=== PATIENT | female | born 1985 | race Caucasian/White ===

== ENCOUNTER 2020-05-03 14:46 | Outpatient (CLI) | payer OTHER, SELFPAY ==
--- NOTE | ~2020-05-03 | DEXA_ITS ---
Bone Density Report Name: Melva Gil Age: 34 Sex: Female Ethnicity: White Date of : 1985 Indication: asthma or emphysema; Referring Provider: Geoff, Meron Shipley Study: Bone densitometry was performed. Exam Date: May 03, 2020 Accession number: [id number] Bone Density: Region BMD T-score Z-score Classification AP Spine (L1, L2, L4) 1.146 1.0 1.1 Normal Femoral Neck (Left) 0.949 0.9 1.1 Normal Total Hip (Left) 1.213 2.2 2.3 Normal Total Hip Bilateral Avg 1.205 2.1 2.3 Normal Femoral Neck (Right) 0.845 0.0 0.2 Normal Total Hip (Right) 1.196 2.1 2.2 Normal World Health Organization criteria for BMD impression classify patients as: Normal (T-score at or above -1.0), Osteopenia (T-score between -1.0 and -2.5), or Osteoporosis (T-score at or below -2.5). 10-year Fracture Risk: FRAX not reported because: Premenopausal woman All T-scores for Spine Total, Hip Total, Femoral Neck at or above -1.0 Previous Exams: Region Exam Age BMD T-score BMD Change BMD Change Date g/cm2 vs Baseline vs Previous AP Spine(L1, L2, L4) 05/03/2020 34 1.146 1.0 0.059(5.4%)* -0.055(-4.6%)# 07/03/2017 32 1.201 1.5 0.114(10.5%)# 0.114(10.5%)06/23/2013 27 1.087 0.5 Total Hip(Left) 05/03/2020 34 1.213 2.2 0.008(0.7%) -0.026(-2.1%)# 07/03/2017 32 1.238 2.4 0.034(2.8%)# 0.034(2.8%)06/23/2013 27 1.205 2.2 Total Hip(Right) 05/03/2020 34 1.196 2.1 0.038(3.3%)* 0.010(0.9%)07/03/2017 32 1.186 2.0 0.028(2.4%)# 0.028(2.4%)06/23/2013 27 1.158 1.8 *Denotes significance at 95% confidence level, LSC for AP Spine = 0.022 g/cm2, LSC for Total Hip = 0.027 g/cm2 Clinical Information Provided by Patient: Has used the following medications: Vitamin D, Calcium Has the following medical conditions: Asthma or Emphysema, HIGH RISK MEDS Patient maximum height was 62 No regular weight bearing exercise Drinks caffeinated beverages Onset of menses at age 7 Premenopausal Number of children 0 Impression: The patient's bone mass is within expected range for age, gender and ethnicity. No significant bone loss was observed. Discussion: BONE DENSITY IS WITHIN EXPECTED LIMITS FOR AGE, SEX AND RACE. Bone density is within expected limits for age, sex and race at all sites measured. The patient should follow a healthful lifestyle (good nutrition with adequate calcium and vitamin D, and appropriate weight-francois
== END 2020-05-03 14:47 | disposition home or self-care (01) ==
LOC: ANHIMG 14:49
PROVIDERS: PCP Family Medicine; Visit Provider Physician Assistant Medical
DX: Z51.81 Encounter for therapeutic drug level monitoring (principal); Z79.51 Long term (current) use of inhaled steroids
CPT/HCPCS: 77080

== ENCOUNTER 2021-02-09 15:35 | Outpatient (CLI) | payer OTHER, SELFPAY ==
--- NOTE | ~2021-02-09 | XR_ITS ---
XR shoulder RT min 2V DATE: 02/09/2021 16:16 INDICATION: Right shoulder pain. No acute injury. TECHNIQUE: 5 views COMPARISON: None FINDINGS: Fracture or dislocation, periosteal reaction or bone destruction. Normal alignment at the a cromioclavicular and glenohumeral joints. No abnormal soft tissue calcification. IMPRESSION: Negative Reviewed, dictated and finalized at location A. IMPRESSION: Negative
== END 2021-02-09 15:36 | disposition home or self-care (01) ==
LOC: ANHIMG 15:36
PROVIDERS: PCP Family Medicine; Visit Provider Family Medicine
DX: M25.511 Pain in right shoulder (principal)
CPT/HCPCS: 73030

== ENCOUNTER → 2021-06-09 11:03 | Outpatient (CLI) | payer OTHER, SELFPAY ==
--- NOTE | ~2021-06-09 | MR_ITS ---
EXAMINATION: MR shoulder RT wo con DATE: 06/09/2021 11:48 INDICATION: Right shoulder pain. TECHNIQUE: Magnetic resonance imaging (MRI) of the right shoulder was performed without intravenous c ontrast. Sequences included axial PD-weighted FS FSE, coronal oblique PD-weighted FS FSE and T2-weigh kae FS FSE, and sagittal oblique T2-weighted FS FSE and T1-weighted FSE. COMPARISON: Right shoulder radiographs 02/09/2021 FINDINGS: Coracoacromial arch: The acromion undersurface is curved in morphology (type II). The acromioclavicular joint is normal. T here is mild subacromial/subdeltoid bursitis. Rotator cuff: There is moderate supraspinatus and infraspinatus tendinopathy. Teres minor tendon is normal. Subscap ularis tendon is normal. No tear. There is no fatty atrophy of the rotator cuff muscle bellies. Biceps tendon and glenoid labrum: Biceps tendon is in bicipital groove. Intra-articular biceps tendon is normal. There is degeneration of superior labrum without well-defined tear. Fluid: There is a small glenohumeral joint effusion. Bones/cartilage: Glenoid cartilage is normal. Humeral head cartilage is normal. IMPRESSION: 1. Moderate rotator cuff tendinopathy. No tear. 2. Mild subacromial/subdeltoid bursitis. 3. Small glenohumeral joint effusion. Reviewed, dictated and finalized at location A. N DRIVER SALESPERSON
== END ==
PROVIDERS: Visit Provider Nurse Practitioner Family
DX: M75.51 Bursitis of right shoulder (principal); M25.411 Effusion, right shoulder
CPT/HCPCS: 73221

== ENCOUNTER → 2021-10-16 11:51 | Outpatient (CLI) | payer OTHER, SELFPAY ==
--- NOTE | ~2021-10-16 | MR_ITS ---
EXAMINATION: MR shoulder RT w con DATE: 10/16/2021 13:52 INDICATION: Right shoulder pain TECHNIQUE: Magnetic resonance imaging (MRI) of the right shoulder was performed following intra-jennifer cular gadolinium contrast injection and without intravenous contrast. Details of the glenohumeral christiana nt injection have been dictated separately. Sequences included axial T2-weighted FS FSE, axial T1-we ighted FS FSE, coronal oblique T1-weighted FS FSE, coronal oblique T2-weighted FSE, sagittal T2-weigh kae FS FSE, sagittal T1-weighted FSE, and ABER (abduction external rotation) T1-weighted FS FSE. COMPARISON: 06/06/2021 FINDINGS: Coracoacromial arch: The acromion undersurface is curved in morphology (type II). The coracoacromial ligament is normal. A cromioclavicular joint is normal. Rotator cuff: Mild tendinopathy of the conjoined portion of the supraspinatus and infraspinatus tendons without dis crete tear. The subscapularis tendon and teres minor tendons are normal. No asymmetric rotator cuff m uscle atrophy. There is some intrasubstance contrast within the distal subscapularis muscle and tendo n likely representing a small amount of intramuscular injected contrast which is centered at the site of injection. Biceps tendon, glenoid labrum and glenohumeral cartilage: Long head of the biceps tendon is normal. Glenohumeral cartilage is normal. Small region of fraying a long the peripheral free edge of the 11:00 position of the posterior superior glenoid labrum best angie reciated on oblique sagittal series 8, image 17, oblique coronal series 5 & 6, image 10 and axial ser ies 3 & 4, images 10-11. Remainder of the labrum appears normal. Bones and other: Bone alignment is normal. Normal marrow signal with no edema, fracture or pathologic marrow replacing process. Small amount of noncontrast enhanced fluid in the subacromial/subdeltoid bursa consistent w ith mild bursitis. IMPRESSION: 1. Small region of fraying along the peripheral free edge of the posterior superior glenoid labrum. 2. Mild tendinopathy without discrete tear at the conjoined portion of the supraspinatus and infraspi natus tendons. 2. Mild subacromial/subdeltoid bursitis. Reviewed, dictated and finalized at location B. IMPRESSION: 1. Small region of fraying along the peripheral free edge of the posterior supe rior glenoid labrum. 2. Mild tendinopathy without discrete tear at the conjoined portion of the supr aspinatus and infraspinatus tendons. 2. Mild subacromial/subdeltoid bursitis.
--- NOTE | ~2021-10-16 | XR_ITS ---
EXAMINATION: XR fl inj shoulder RT - MR/CT DATE: 10/16/2021 13:30 INDICATION: Right shoulder pain TECHNIQUE: A time-out was performed to verify the patient's name, date of , and procedure to b e performed. The procedure including the risks, benefits, and alternatives was discussed with the pat ient. Risks discussed included bleeding and infection. The patient understood the risks and agreed to proceed. The skin overlying the rotator cuff interval of the right glenohumeral joint was prepped a nd draped in usual sterile fashion. Anesthetic was administered with 1% lidocaine subcutaneously. A 22 G needle was advanced under fluoroscopic guidance into the joint. Injection of 1 mL of Omnipaque 240 confirmed intra-articular position of the needle. Subsequently, injectate consisting of 12 mL o f 2:1:1 mixture of sterile saline:Omnipaque 240:1% lidocaine mixed 200:1 with 529 mg/mL Multihance ga dolinium contrast was injected. With intermittent fluoroscopy confirming intra-articular administrati on. The needle was removed and the entry site was cleaned and dressed. There were no immediate compl ications. Fluoroscopy exposure time was 0.1 minutes. The total number of images was 11. FINDINGS: Real-time fluoroscopy demonstrates the needle in the right glenohumeral joint. IMPRESSION: 1. Successful right glenohumeral joint injection of a dilute gadolinium contrast mixture for subseque nt MR arthrogram which will be dictated separately. Reviewed, dictated and finalized at location B. IMPRESSION: 1. Successful right glenohumeral joint injection of a dilute gadolinium contras t mixture for subsequent MR arthrogram which will be dictated separately.
== END ==
PROVIDERS: PCP Family Medicine; Visit Provider Nurse Practitioner Family
DX: M25.511 Pain in right shoulder (principal); M75.51 Bursitis of right shoulder
CPT/HCPCS: 23350; 73222; 77002; A9577; Q9966

== ENCOUNTER 2022-04-13 01:23 | Day surgery (SDC) | payer OTHER, SELFPAY ==
[2022-03-30 13:33] VITALS: BMI 43.5
--- NOTE | 2022-04-12 17:38 | PM.HPGS ---
History of Present Illness History of Present Illness Consent: Risks, benefits, and alternatives have been discussed and questions answered. Patient agrees to proceed with procedure. Chief complaint: GERD Narrative: Melva Delcid is a 36 year old female was referred because of persistent and refractory reflux symptoms. This is despite the fact she takes omeprazole twice a day. Review of Systems Review of Systems: All systems reviewed & are unremarkable except as noted in HPI and below PMFSH Past Medical History Medical History Asthma Biceps tendonitis Biceps tendonitis GERD (gastroesophageal reflux disease) HH (hiatus hernia) PCOS (polycystic ovarian syndrome) Right shoulder pain Rotator cuff tendonitis SLAP tear of shoulder Vision abnormalities Surgical History Surgical History H/O nevus excision History of esophagogastroduodenoscopy (EGD) History of removal of skin mole Family History Family History Father Hypertension Asthma Family history of kidney disease Sibling Patient's sister is in good health Patient's brother is in good health Grandparent Cerebrovascular accident Family history of malignant neoplasm of breast Social History Social History Social History: Smoking status: Never smoker Second hand tobacco smoke exposure: No Alcohol intake: current Drinks per week: 1 Alcohol use details: Occasionally Substance use: never Substance use type: does not use Living arrangements: with family Gender identity (if verbalized by the patient): Female Sexual Orientation (if Verbalized by the Patient): Straight or Heterosexual Spiritual care concerns: No Meds Home Medications and Allergies Home Medications Medication Instructions Recorded Confirmed Type albuterol sulfate 90 mcg/actuation 1 inhalation inhalation Q4H PRN 11/20/19 04/13/22 Rx aerosol inhaler shortness of breath or wheezing #8.5 grams biotin 5 mg capsule 5 mg PO DAILY 03/22/21 04/13/22 History metformin 500 mg tablet 500 mg PO BID 03/22/21 04/13/22 History Symbicort 160 mcg-4.5 2 puff inhalation Q12H #10.2 grams 08/28/21 04/13/22 Rx mcg/actuation HFA aerosol inhaler (budesonide-formoterol) cholecalciferol (vitamin D3) 25 25 mcg PO DAILY 09/26/21 04/13/22 History mcg (1,000 unit) capsule azelastine 137 mcg (0.1 %) nasal 1 spray intranasal Q12H #30 mL 11/14/21 04/13/22 Rx spray aerosol omeprazole 20 mg capsule,delayed 40 mg PO DAILY #180 caps 03/28/22 04/13/22 Rx release Allergies Allergy/AdvReac Type Severity Reaction Status Date / Time erythromycin base Allergy Mild Other Verified 04/13/22 06:13 Penicillins Allergy Mild Other Verified 04/13/22 06:13 Exam Const: General: alert Orientation/consciousness: patient oriented x3 Resp: Auscultation: clear to auscultation bilaterally Cardio: Rhythm: regular rhythm GI: GI Palp: Yes Soft to palpation and No Tenderness to palpation present (GI) Neuro: General: patient oriented x3 Assessment and Plan Assessment and plan (1) GERD (gastroesophageal reflux disease): Code(s): K21.9 - Gastro-esophageal reflux disease without esophagitis Status: Acute Assessment and Plan: EGD with possible biopsy or dilatation or cautery.
[2022-04-13 06:20] VITALS: BP 137/86; PULSE 99; RESP 16; TEMP 36; O2SAT 99; BMI 42.5
[2022-04-13] MEDS: LACTATED RINGERS 1,000 ML 150 ML IV CONT (06:27)
--- NOTE | 2022-04-13 07:15 | WPDANESEPPF ---
Anes - Initial Pre Proc Eval Procedure: Operation Date: 04/13/22 07:30 Proposed Procedures p Esophagogastroduodenoscopy EGD - Milad Steve MD Date/Time: 04/13/22 07:15 Surgeon: Milad Steve MD Pre Op Diagnosis: GERD Patient Data Age: 36 Gender: F Height: 1.57 m Weight: 105.5 kg Last Vital Signs Temp 96.8 F L 04/13/22 06:20 Pulse 99 04/13/22 06:20 Resp 16 04/13/22 06:20 BP 137/86 04/13/22 06:20 Pulse Ox 99 04/13/22 06:20 O2 Del Method Room Air 04/13/22 06:20 Allergies Allergy/AdvReac Type Severity Reaction Status Date / Time erythromycin base Allergy Mild Other Verified 04/13/22 06:13 Penicillins Allergy Mild Other Verified 04/13/22 06:13 Home Medications Medication Instructions Recorded Confirmed Type albuterol sulfate 90 mcg/actuation 1 inhalation inhalation Q4H PRN 11/20/19 04/13/22 Rx aerosol inhaler shortness of breath or wheezing #8.5 grams biotin 5 mg capsule 5 mg PO DAILY 03/22/21 04/13/22 History metformin 500 mg tablet 500 mg PO BID 03/22/21 04/13/22 History Symbicort 160 mcg-4.5 2 puff inhalation Q12H #10.2 grams 08/28/21 04/13/22 Rx mcg/actuation HFA aerosol inhaler (budesonide-formoterol) cholecalciferol (vitamin D3) 25 25 mcg PO DAILY 09/26/21 04/13/22 History mcg (1,000 unit) capsule azelastine 137 mcg (0.1 %) nasal 1 spray intranasal Q12H #30 mL 11/14/21 04/13/22 Rx spray aerosol omeprazole 20 mg capsule,delayed 40 mg PO DAILY #180 caps 03/28/22 04/13/22 Rx release Patient hx anesthesia problems: none Family hx anesthesia problems: none Results Review: All pre-operative results and documents have been reviewed as part of the pre-operative evaluation. [facility] Past Medical History Medical History Asthma Biceps tendonitis Biceps tendonitis GERD (gastroesophageal reflux disease) HH (hiatus hernia) PCOS (polycystic ovarian syndrome) Right shoulder pain Rotator cuff tendonitis SLAP tear of shoulder Vision abnormalities Surgical History Surgical History H/O nevus excision History of esophagogastroduodenoscopy (EGD) History of removal of skin mole Family History Family History Father Hypertension Asthma Family history of kidney disease Sibling Patient's sister is in good health Patient's brother is in good health Grandparent Cerebrovascular accident Family history of malignant neoplasm of breast Social History Social History Social History: Smoking status: Never smoker Second hand tobacco smoke exposure: No Alcohol intake: current Drinks per week: 1 Alcohol use details: Occasionally Substance use: never Substance use type: does not use Living arrangements: with family Gender identity (if verbalized by the patient): Female Sexual Orientation (if Verbalized by the Patient): Straight or Heterosexual Spiritual care concerns: No Anes - Eval Final PreProcedure Day of Procedure 04/13/22 07:15 Patient weight: morbidly obese Heart: regular rate and rhythm Lungs: clear to auscultation Airway: Mallampati scale Neurological: alert and oriented Last oral intake: >/= 8 hours ASA classification: III Emergent: no Anesthetic plan: proceed Anesthesia type and monitoring: general GIVS and standard monitoring Results Review: All pre-operative results and documents have been reviewed as part of the pre-operative evaluation. Informed Consent: The patient's anesthetic plan and its attendant risks and benefits were discussed with the patient/family/POA. Questions were solicited and answers provided to the satisfaction of the patient/family/POA.
[2022-04-13] MEDS: BENZOCAINE (*SP) 60 ML SPRAY CAN (HURRICAINE) 1 SPRAY MUCOUS MEM (07:30)
[2022-04-13 07:41] VITALS: BP 133/70; PULSE 94; RESP 20; O2SAT 96
[2022-04-13 07:51] VITALS: BP 118/73; PULSE 85; RESP 20; O2SAT 98
[2022-04-13 08:01] VITALS: BP 123/75; PULSE 83; RESP 20; O2SAT 98
== END 2022-04-13 08:11 | disposition home or self-care (01) ==
PROVIDERS: PCP Family Medicine; Visit Provider Internal Medicine Gastroenterology
PROC: 0DJ08ZZ Inspection of Upper Intestinal Tract, Via Natural or Artificial Opening Endoscopic (ICD-10-PCS; CPT 43235; principal; 2022-04-13 07:30)
DX: K21.9 Gastro-esophageal reflux disease without esophagitis (principal); K44.9 Diaphragmatic hernia without obstruction or gangrene; J45.909 Unspecified asthma, uncomplicated; E28.2 Polycystic ovarian syndrome; Z79.51 Long term (current) use of inhaled steroids; Z79.84 Long term (current) use of oral hypoglycemic drugs; E66.01 Morbid (severe) obesity due to excess calories; Z68.41 Body mass index [BMI] 40.0-44.9, adult
CPT/HCPCS: 43239; 88305; J2704; J7120

== ENCOUNTER → 2023-04-16 15:58 | Outpatient (CLI) | payer OTHER, SELFPAY ==
--- NOTE | ~2023-04-16 | XR_ITS ---
XR chest 2V DATE: 04/16/2023 16:17 INDICATION: Wheezing TECHNIQUE: 2 views COMPARISON: None FINDINGS: Normal heart size. No hilar or mediastinal enlargement. No pulmonary infiltrate or consolid ation, pleural effusion or pulmonary mass congestion or pneumothorax. IMPRESSION: No active cardiopulmonary disease Reviewed, dictated and finalized at [facility] L. R STITCHER
== END ==
PROVIDERS: PCP Physician Assistant; Visit Provider Physician Assistant
DX: R06.2 Wheezing (principal)
CPT/HCPCS: 71046

== ENCOUNTER 2023-07-11 15:27 | Outpatient (CLI) | payer OTHER, SELFPAY ==
--- NOTE | ~2023-07-11 | XR_ITS ---
EXAMINATION: XR knee RT 3V DATE: 07/11/2023 15:55 INDICATION: Mild recurrent polyarthropathy. TECHNIQUE: 3 views of right knee on 4 radiographs including standing views were obtained. COMPARISON: None. FINDINGS: Bone alignment is normal. No fracture. There is mild tricompartmental osteoarthritis. No kn ee joint effusion. IMPRESSION: 1. Mild right knee osteoarthritis. Reviewed, dictated and finalized at location A.
--- NOTE | ~2023-07-11 | XR_ITS ---
EXAMINATION: XR knee LT 3V DATE: 07/11/2023 15:55 INDICATION: Mild recurrent polyarthropathy. TECHNIQUE: 3 views of left knee including standing views were obtained. COMPARISON: None. FINDINGS: Bone alignment is normal. No fracture. There is mild tricompartmental osteoarthritis. No kn ee joint effusion. IMPRESSION: 1. Mild left knee osteoarthritis. Reviewed, dictated and finalized at location A.
== END 2023-07-11 15:28 ==
PROVIDERS: PCP Internal Medicine; Visit Provider Internal Medicine
DX: M06.4 Inflammatory polyarthropathy (principal); M17.0 Bilateral primary osteoarthritis of knee
CPT/HCPCS: 73562

== ENCOUNTER 2023-11-19 16:16 | Outpatient (CLI) | payer OTHER, SELFPAY ==
--- NOTE | ~2023-11-19 | MM_ITS ---
EXAMINATION: MM screening michelle BI w [facility] HISTORY: Screening TECHNIQUE: Craniocaudal and mediolateral oblique 3-D tomosynthesis images were obtained and synthetic 2-D images were generated. CAD analysis was submitted and interpreted. COMPARISON: No prior mammogram is available for comparison at this institution. BREAST PARENCHYMAL COMPOSITION: Not dense: There are scattered areas of fibroglandular density. FINDINGS: There is no evidence of suspicious mass, calcification, or architectural distortion to sugg est malignancy in either breast. There has been no suspicious interval change. IMPRESSION: 1. No mammographic evidence of malignancy. 2. Recommend routine screening mammography in one year. BI-RADS Category 1: Negative Reviewed, dictated and finalized at location B.
== END 2023-11-19 16:17 ==
LOC: MICIMG 16:16
PROVIDERS: PCP Nurse Practitioner Women's Health; Visit Provider Physician Assistant
DX: Z12.31 Encounter for screening mammogram for malignant neoplasm of breast (principal)
CPT/HCPCS: 77063; 77067

== ENCOUNTER 2024-11-19 15:59 | Outpatient (CLI) | payer OTHER, SELFPAY ==
--- NOTE | ~2024-11-19 | MM_ITS ---
EXAMINATION: MM screening michelle BI w [facility] HISTORY: Screening TECHNIQUE: Craniocaudal and mediolateral oblique 3-D tomosynthesis images were obtained and synthetic 2-D images were generated. CAD analysis was submitted and interpreted. COMPARISON: Comparison to multiple prior studies sequentially, with oldest reviewed study dated 11/18. BREAST PARENCHYMAL COMPOSITION: Not dense: There are scattered areas of fibroglandular density. FINDINGS: There is no evidence of suspicious mass, calcification, or architectural distortion to sugg est malignancy in either breast. There has been no suspicious interval change. IMPRESSION: 1. No mammographic evidence of malignancy. 2. Recommend routine screening mammography in one year. BI-RADS Category 1: Negative Reviewed, dictated and finalized at location A.
== END 2024-11-19 16:00 | disposition home or self-care (01) ==
PROVIDERS: PCP Family Medicine; Visit Provider Obstetrics & Gynecology Gynecology
DX: Z12.31 Encounter for screening mammogram for malignant neoplasm of breast (principal)
CPT/HCPCS: 77063; 77067

== ENCOUNTER 2025-01-01 14:25 | Outpatient (CLI) | payer OTHER, SELFPAY ==
--- OUTSIDE RECORDS SUMMARY | 2025-01-01 14:27 | XMS_ITS | Encounter Summary ---
Author Organization [facility] Address [address] [place] [address] Phone Care Team Providers Care Motor Vehicle License Clerk Name Role Phone Catrachita Cardenas MD Primary Care Provider [phone] Reason for Visit * Reason Comments Medication Refill Encounter Details Date Type Department Care Team (Late st Contact Info) Description 02/21/2021 Refill [facility] - Gastroenterology [facility] [address] [place] [address] Meron Tellez Becca, PAC [address] [place] [address] Medication Refill Social History Tobacco Use Types Packs/Day Years Used Date Smoking Tobacco: Never Smokeless Tobacco: Never Alcohol Use Standard Drinks/Week Comments Yes 0 (1 standard drink = 0.6 oz pur e alcohol) socially Sexually Active Control Partners Comments Yes Comments No Sex and Gender Information Value Date Recorded Sex Assigned at Not on file Legal Sex Female 8:50 PM CDT Gender Identity Not on file Sexual Orientation Not on file documented as of this encounter Miscellaneous Notes * Telephone Encounter - Mariela Hodge RN - 02/27/2021 12:07 PM BIRDCAGE ASSEMBLER Medication refilled and signed per [facility] chronic medication standing order for pediatric and adult patients. CAGE ASSEMBLER * Telephone Encounter - Mariela Hodge RN - 02/27/2021 12:02 PM BIRDCAGE ASSEMBLER Patient called back. Patient scheduled an appt for 03/22/2021. CAGE ASSEMBLER * Telephone Encounter - Mariela Hodge RN - 02/27/2021 11:04 AM BIRDCAGE ASSEMBLER Left message to call back. CAGE ASSEMBLER * Telephone Encounter - Mariela Hodge RN - 02/21/2021 10:14 AM BIRDCAGE ASSEMBLER Pharmacy requesting refill of: Requested Prescriptions Pending Prescriptions Disp Refills ??? omeprazole (PriLOSEC) 20 MG CAPSULE DELAYED RELEASE [Pharmacy Med Name: OMEPRAZOLE DR CAPS 20MG] 180 Capsule 3 Sig: TAKE 1 CAPSULE TWICE A DAY Last fill: 03/16/2020 Patients last OV with GI: 03/16/2020 Next Office Visit with GI: None scheduled. Called patient to offer appt. Left message for patient to call back. CAGE ASSEMBLER documented in this encounter Plan of Treatment Not on file documented as of this encounter Visit Diagnoses Diagnosis Gastroesophageal reflux disease without esophagitis Esophageal reflux documented in this encounter Care Teams Motor Vehicle License Clerk Relationship Specialty Start Date End Date Catrachita Cardenas MD [address] [facility] [address] [place] [address] PCP - General Family Medicine 03/21/17 documented as of this encounter
--- OUTSIDE RECORDS SUMMARY | 2025-01-01 14:28 | XMS_ITS | Clinical Summary ---
Author Organization [facility] Address [address] [facility] [address] [place] [address] Phone Care Team Providers Care Warp Dyeing Tender Name Role Phone Catrachita Cardenas MD Primary Care Provider [phone] Allergies Active Allergy Reactions Criticality Noted Date Comments Erythromycin Other (see Comments) 05/24/2016 Penicillins Other (see Comments) 05/24/2016 Medications fluticasone (FLONASE) 50 MCG/ACT Suspension as needed. Active metFORMIN (GLUCOPHAGE-XR) 500 MG TABLET SR 24 HRIndications:PC OS 2 times daily. Indications: PCOS 7 Active Cholecalciferol (VITAMIN D PO) Take 1,600 Units by mouth daily. Active BIOTIN PO Take 400 mcg by mouth daily. Active albuterol 108 (90 Base) MCG/ACT Aerosol Solution take 2 Puffs by inhalation every 4 hours as needed. 7 Active budesonide-formo terol fumarate (SYMBICORT) 160-4.5 MCG/ACT Aerosol take 2 Puffs by inhalation as needed. Active omeprazole (PriLOSEC) 20 MG CAPSULE DELAYED RELEASEIndicatio ns:Gastroesophag eal reflux disease without esophagitis Take 2 Capsules by mouth 2 times daily (before meals). Take 30 minutes before meals with protein 180 Capsule 1 Active Additional Information Patient taking differently: 20 mgOral 2 TIMES DAILY BEFORE MEALS, Take 30 minutes before meals with protein, Reported on 11/24/2021 Active Problems Problem Noted Date Diagnosed Date Gastroesophageal reflux disease without esophagi tis 03/16/2020 Long-term use of high-risk medication 03/16/2020 Immunizations Immunization Administration Dates Next Due Influenza Vaccine, MDCK,quadrivalent, pres free 01/12/2019 Family History Medical History Relation Name Comments Cancer Father Prostate Polycystic Kidney Disease Father Breast Cancer Maternal Grandmother Polycystic Kidney Disease Paternal Uncle Relation Name Status Comments Father Maternal Grandmother Paternal Uncle Sister hystoplasmosis Social History Tobacco Use Types Packs/Day Years Used Date Smoking Tobacco: Never Smokeless Tobacco: Never Tobacco Cessation:Counseling Given: No Alcohol Use Standard Drinks/Week Comments Yes 0 (1 standard drink = 0.6 oz pur e alcohol) socially Sexually Active Control Partners Comments Yes Comments No Sex and Gender Information Value Date Recorded Sex Assigned at Not on file Legal Sex Female 8:50 PM CDT Gender Identity Not on file Sexual Orientation Not on file Last Filed Vital Signs Vital Sign Reading Time Taken Comments Blood Pressure 134/76 03/22/2021 3:14 PM INTERNAL SECURITY MANAGER Pulse 89 03/22/2021 3:14 PM INTERNAL SECURITY MANAGER Temperature 36.6 C (97.8 F) 03/22/2021 3:14 PM INTERNAL SECURITY MANAGER Respiratory Rate 18 03/22/2021 3:14 PM INTERNAL SECURITY MANAGER Oxygen Saturation 98% 03/22/2021 3:14 PM INTERNAL SECURITY MANAGER Inhaled Oxygen Concentration - - Weight 107.5 kg (237 lb) 11/24/2021 3:00 PM CDT Height 157.5 cm (5' 2) 11/24/2021 3:00 PM CDT Body Mass Index 43.35 11/24/2021 3:00 PM CDT Plan of Treatment Health Maintenance Due Date Last Done Comments Hepatitis C Virus (HCV) Screening 1983 Hepatitis B Immunization (1 of 3 - 19+ 3-dose series) 06/24/2002 Pap Smear 06/24/2004 Cervical Cancer Screening (CCS) 06/24/2013 HPV/Cotest 06/24/2013 Influenza Immunization (#1) 2024 01/09/2021, 1 SARS-COV-2 Immunization ( season) 2024 02/25/2021, 2020, 05/28/2020 Respiratory Syncytial Virus (RSV) Immunization (Adult) (1 - 1-dose 75+ series) 06/24/2058 DTaP/Tdap/Td Immunization Discontinued 2020, 12/17/1984, 01/07/1984, Additional history exists TdaP Immunization Completed 02/25/2021 Human Papillomavirus (HPV) Immunization Completed 09/13/2021, 05/22/2021, 03/06/2021 Meningococcal Immunization (ACWY) Aged Out No longer eligible based on patient's age to complete this topic Pneumococcal Immunization Combined Aged Out No longer eligible based on patient's age to complete this topic Rotavirus Immunization Aged Out No lo nger eligible based on patient's age to complete this topic Care Teams Warp Dyeing Tender Relationship Specialty Start Date End Date Catrachita Cardenas MD [address] [facility] [address] [place] [phone] PCP - General Family Medicine 03/21/17
--- OUTSIDE RECORDS SUMMARY | 2025-01-01 14:28 | XMS_ITS | Clinical Summary ---
Author Organization [facility] Address [address] [place] [address] Care Team Providers Care Grain Thresher Name Role Phone Catrachita Cardenas MD Primary Care Provider Trisha Werner CRYSTALLOGRAPHY TEACHER Unavailable [phone] Allergies Active Allergy Reactions Criticality Noted Date Comments Erythromycin Stomach upset Low 09/11/2017 cramping Penicillins Stomach upset Low 09/11/2017 cramping Medications metformin HCl (METFORMIN ORAL)Indications: pcos Take 500 mg by mouth 2 (two) times a day Active ergocalciferol, vitamin D2, (VITAMIN D2 ORAL)Indications: supplement Take 1 tablet by mouth every morning With vitamin k Active budesonide-formot joshua (SYMBICORT) 160-4.5 mcg/actuation inhalerIndication s:Maintenance Therapy for Asthma Inhale 2 puffs 2 (two) times a day as needed Rinse mouth with water after use to reduce aftertaste and incidence of candidiasis. Do not swallow. Active biotin 1 mg tabletIndications :supplement Take 1,000 mcg by mouth 2 (two) times a day Active Slynd tablet tabletIndications : Contraception Take 4 mg by mouth every morning 2 Active omeprazole (PriLOSEC) 20 mg capsuleIndication s:hiatal hernia Take 20 mg by mouth 2 (two) times a day Active azelastine HCl (AZELASTINE NASL) Administer 1 spray into each nostril as needed (allergies) Active Active Problems Problem Noted Date Diagnosed Date Biceps tendinitis of right upper extremity 02/14 Overview (02/14/2022): Added automatically from request for surgery [id number] Surgical History Surgery Date Site/Laterality Comments WISDOM TOOTH EXTRACTION 03/08/2004 - 04/07/2004 MOLE REMOVAL 04/08/2006 - 04/07/2007 x2 ESOPHAGOSCOPY / EGD 04/08/2017 - 04/07/2018 multiple POLYPECTOMY 04/08/2018 - 04/07/2019 FLUORO GUIDED INJECTION SHOU LDER RIGHT 07/30/2022 Right Medical History Medical History Date Comments PCOS (polycystic ovarian syndrome) Acid reflux Hiatal hernia Asthma albuterol use ~1 x/month Motion sickness GERD (gastroesophageal reflux disease) Family History Medical History Relation Name Comments Hypertension Father Heart attack Maternal Grandmother Anesthesia problems Neg Hx Relation Name Status Comments Father Maternal Grandmother Social History Tobacco Use Types Packs/Day Years Used Date Smoking Tobacco: Never Smokeless Tobacco: Never Tobacco Cessation:Counseling Given: Not Answered Alcohol Use Standard Drinks/Week Comments Yes 0 (1 standard drink = 0.6 oz pur e alcohol) AUDIT-C Answer Date Recorded Q1: How often do you have a drink containing alc ohol? Monthly or less 04/23/2022 Q2: How many drinks containi ng alcohol do you have on a typical day when you are drinking? 1 or 2 04/23/2022 Q3: How often do you have si x or more drinks on one occasion? Never 04/23/2022 Comments No Sex and Gender Information Value Date Recorded Sex Assigned at Not on file Legal Sex Female 8:32 AM CDT Gender Identity Female 04/17/2022 9:53 AM HUMAN RESOURCES PROJECT MANAGER Sexual Orientation Straight 04/17/2022 9: 53 AM HUMAN RESOURCES PROJECT MANAGER Obstetrics History Last Filed Vital Signs Vital Sign Reading Time Taken Comments Blood Pressure 114/71 07/30/2022 9:41 AM CDT Pulse 103 07/30/2022 9:41 AM CDT Temperature 36.4 C (97.5 F) 04/23/2022 2:35 PM HUMAN RESOURCES PROJECT MANAGER Respiratory Rate 20 07/30/2022 9:41 AM CDT Oxygen Saturation 95% 04/23/2022 2:35 PM HUMAN RESOURCES PROJECT MANAGER Inhaled Oxygen Concentration - - Weight 104.1 kg (229 lb 8 oz) 04/23/2022 10:54 A M HUMAN RESOURCES PROJECT MANAGER Height 157.5 cm (5' 2) 04/23/2022 10:54 AM HUMAN RESOURCES PROJECT MANAGER Body Mass Index 41.98 04/23/2022 10:54 AM HUMAN RESOURCES PROJECT MANAGER Plan of Treatment Health Maintenance Due Date Last Done Comments Breast Cancer Screening-Mammogram 1985 Cervical Cancer Screening 1983 Depression Screening 1983 Hepatitis C Screening 1983 Varicella Vaccines (1 of 2 - 13+ 2-dose series) 06/24/1996 Hepatitis B Screening 06/24/2001 Regular Well Visit/Exam 18-64 06/24/2001 Pneumococcal vaccine <65 (1 of 2 - PCV) 06/24/2002 Covid-19 Vaccine ( - 2024-2 6 season) 2024 02/25/2021, 2020, 05/28/2020 Influenza Vaccine (#1) 2024 01/09/2021, 2018 DTaP/Tdap/Td Vaccine (6 - Td or Tdap) 02/25/2031 02/25/2021, 12/17/1984, 01/07/1984, Additional history exists HPV Vaccines Completed 09/13/2021, 05/09, 03/06/2021 Medical Devices Implanted Type Area Cheesemaking Laborer Device Identifier Shelf Expiration Date Model / Serial / Lot [employer] Manager Drive Large Eyelet Pectoralis Button Fixation Latex Free [id number]-[id number] - [id number] Implanted:Qty: 1 on 04/23/2022 by Kaveh Ho MD at [facility] Right: Shoulder [employer] 01/05/2027 AR-2267 / / [id number] Insurance [facility] [employer] [place] [id number] [facility] [employer] Care Teams Grain Thresher Relationship Specialty Start Date End Date Catrachita Cardenas MD [address] [address] PCP - General Family Medicine 08/28/17 Trisha Werner NP [address] [address] Nurse Practitioner Nurse Practitioner 09/19/17
--- OUTSIDE RECORDS SUMMARY | 2025-01-01 14:28 | XMS_ITS | Clinical Summary ---
Author Organization [facility] Address [address] [place] [address] Care Team Providers Care Carry Out Clerk And Shelf Stocker Name Role Phone Unavailable Primary Care Provider Unavailabl e Source Comments [facility],non-owned Affiliates and Associated Physician Practices is amultiple site organization consisting of ambulatory clinics and hospital sitesin [place], [place], [place] and [place]. This disclosure is being madepursuant to the Care Everywhere program and may not contain all information available regarding this patient. Last updated 17.[facility] Social History Tobacco Use Types Packs/Day Years Used Date Smoking Tobacco: Never Assessed Comments Unknown Sex and Gender Information Value Date Recorded Sex Assigned at Not on file Legal Sex Female 12:11 PM POLICE MATRON Gender Identity Not on file Sexual Orientation Not on file Plan of Treatment Health Maintenance Due Date Last Done Comments LIPID TESTING 1985 MAMMOGRAM 1985 HIV SCREENING 06/24/1998 HEPATITIS C SCREENING 06/20/2001 DTAP/TDAP/TD VACCINES (1 - Tdap) 06/24/2002 HEPATITIS B VACCINE (1 of 3 - 19+ 3-dose series) 06/24/2002 PAP SMEAR 06/24/2004 HPV VACCINE (1 - 3-dose SCDM series) 06/24/2010 DEPRESSION SCREENING 04/08/2024 COVID-19 VACCINE (1 - 2023-2 5 season) 2024 INFLUENZA VACCINE (#1) 2024 ZOSTER VACCINE (1 of 2) 06/24/2033 HIB VACCINE Aged Out No longer eligi ble based on patient's age to complete this topic MENINGOCOCCAL (Group B) VACC INE SHARED DECISION-MAKING Aged Out No longer eligibl e based on patient's age to complete this topic MENINGOCOCCAL GROUPS A/C/Y/W VACCINE Aged Out No longer eligible b ased on patient's age to complete this topic PNEUMOCOCCAL VACCINE Aged Out No long er eligible based on patient's age to complete this topic Insurance [facility] Member Subscriber Plan / Payer ( fective 2022-Present) Name:Melva Delcid Relation to Subscriber:Self Name:Melva Delcid Payer ID:[id number] (NAIC) Type:[employer] Address: [place] [phone] [facility] Member Subscriber Plan / Payer (Ef fective 2022-Present) Name:Melva Delcid Relation to Subscriber:Self Name:Melva Delcid Payer ID:[id number] (NAIC) Type:[employer] Address: [place] [phone]
--- OUTSIDE RECORDS SUMMARY | 2025-01-01 14:28 | XMS_ITS | Encounter Summary ---
Author Organization [facility] Address [address] [place] [address] Care Team Providers Care Marine Habitat Resource Specialist Name Role Phone Unavailable Primary Care Provider Unavailabl e Encounter Details Date Type Department Care Team (Late st Contact Info) Description 08/22/2022 Lab Requisition [facility] - DermPath Lab [address] [place] [address] Valentina Santos DO [address] [facility] [facility] [address] [place] [address] Social History Tobacco Use Types Packs/Day Years Used Date Smoking Tobacco: Never Assessed Comments Unknown Sex and Gender Information Value Date Recorded Sex Assigned at Not on file Legal Sex Female 12:11 PM ADMIRALTY LAWYER Gender Identity Not on file Sexual Orientation Not on file documented as of this encounter Plan of Treatment Not on file documented as of this encounter Procedures Procedure Name Priority Date/Time Associated Diagnosis Comments DERMATOPATHOLOGY Routine 08/22/2022 8:44 AM CDT documented in this encounter Results * DERMATOPATHOLOGY (08/22/2022 8:44 AM CDT) Case Report Dermatopathology Report Case: [id number] Authorizing Provider: Valentina Santos DO Collected: 08/22/2022 08:44 AM Ordering Location: [facility] DermPath Lab Received: 08/23/2022 09:27 AM Pathologist: Jimenez Lombardi MD Specimen: Skin, right shoulder 3 4:49 PM CDT DERMATOPATHOLOGY LABORATORY Final Diagnosis Specimen A. SKIN, right shoulder: DERMATOFIBROMA (D23.9) 3 4:49 PM CDT DERMATOPATHOLOGY LABORATORY at 1649 CDT Clinical History DF R/O atypia 3 4:49 PM T DERMATOPATHOLOGY LABORATORY Gross Description Specimen A: Received is one formalin filled container labeled with the patient's name and designated right shoulder. The specimen consists of a shave biopsy measuring 6x6x1 mm. Jar 0. 3 4:49 PM T DERMATOPATHOLOGY LABORATORY Microscopic Description Specimen A. SKIN, right shoulder: There is epidermal hyperplasia. Within the dermis, there are fibrohistiocytic cells in haphazard array among coarse collagen bundles. 3 4:49 PM T DERMATOPATHOLOGY LABORATORY Disclaimer An external and internal positive and negative controls are appropriate for the histochemical, immunohistochemical and immunofluorescence stain(s) in this case (if any), except where stated explicitly. The performance characteristics of the stain(s) cited in this report were developed and its performance characteristic determined by the Dermatopathology Laboratory at [facility], directed by Dr. Dora Lombardi. These tests need not be, and therefore are not, approved by the [place] Food and Drug Administration. The tests are used for clinical purposes. Billing Codes Specimen Charges Stain Charges 09312 1 3 4:49 PM CDT DERMATOPATHOLOGY LABORATORY Embedded Images 3 4:49 PM T DERMATOPATHOLOGY LABORATORY Pathology/Cytolo gy TISSUE SPECIMEN FROM SKIN / Unknown 08/22/2022 8:44 AM CDT 08/23/2022 9:27 AM CDT us Valentina Santos DO LAB - PATHOLOGY/CYTOLOGY ORDERABLES Final Result DERMATOPATHOLOGY LABORATORY [facility] - Department of Dermatology [address], [address] [phone] documented in this encounter Visit Diagnoses Not on filedocumented in this encounter
== END 2025-01-01 14:26 | disposition home or self-care (01) ==
LOC: ANHAUDIO 14:25
PROVIDERS: PCP Family Medicine; Visit Provider Otolaryngology
DX: H70.12 Chronic mastoiditis, left ear (principal); H69.92 Unspecified Eustachian tube disorder, left ear; H90.42 Sensorineural hearing loss, unilateral, left ear, with unrestricted hearing on the contralateral side
CPT/HCPCS: 92557; 92567

== ENCOUNTER 2025-01-07 15:02 | Outpatient (CLI) | payer OTHER, SELFPAY ==
--- NOTE | ~2025-01-07 | CT_ITS ---
EXAMINATION: CT IAC/mastoids BI wo con DATE: 01/07/2025 15:24 INDICATION: Chronic mastoiditis, left ear. TECHNIQUE: Computed tomography (CT) of the temporal bones was performed without intravenous contrast. Automated exposure control and iterative reconstruction technique were employed. The dose-length product was 273.73 mGy-cm. COMPARISON: None FINDINGS: RIGHT TEMPORAL BONE: The internal auditory canal, cochlea, vestibule, semicircular canals, vestibular aqueduct, carotid canal, jugular bulb, facial nerve course, ossicles, Prussak space, scutum, tympanic membrane, external auditory canal, and mastoid air cells are normal. LEFT TEMPORAL BONE: The internal auditory canal, cochlea, vestibule, semicircular canals, vestibular aqueduct, facial nerve course, carotid canal, jugular bulb, ossicles, Prussak space, scutum, tympanic membrane, external auditory canal, and mastoid air cells are normal. IMPRESSION: 1. Normal temporal bones. Reviewed, dictated and finalized at location E. IMPRESSION: 1. Normal temporal bones.
== END 2025-01-07 15:03 | disposition home or self-care (01) ==
PROVIDERS: PCP Family Medicine; Visit Provider Otolaryngology
DX: H70.12 Chronic mastoiditis, left ear (principal); G43.109 Migraine with aura, not intractable, without status migrainosus; H69.92 Unspecified Eustachian tube disorder, left ear
CPT/HCPCS: 70480